=== PATIENT | male | born 1950 | race Caucasian/White ===

== ENCOUNTER 2021-08-15 13:11 | Outpatient (CLI) | payer OTHER, SELFPAY ==
[2021-08-15 14:10] LABS: Basophils Absolute Auto 0.1 K/mm3 (0.0-0.1); Basophils Percent Auto 0.6 % (0.2-1.2); Eosinophils Absolute Auto 0.2 K/mm3 (0-0.3); Eosinophils Percent Auto 1.8 % (0-4.4); Hematocrit 44.6 % (42.0-52.0); Immature Granulocyte Absolute 0.03 K/mm3 (0.00-0.031); Immature Granulocyte Percent A 0.3 % (0-0.5); Lymphocytes Percent Auto 26.3 % (18.3-44.2); Mean Corpuscular HGB Conc 33.6 g/dl (32-36); Mean Corpuscular Hemoglobin 30.6 pg (26-34); Mean Platelet Volume 9.4 fl (7.4-10.4); Monocytes Absolute Auto 0.8 K/mm3 (0.1-0.6); Monocytes Percent Auto 8.8 % (2.6-8.5); Neutrophils Absolute Auto 5.4 K/mm3 (1.3-6.7); Neutrophils Percent Auto 62.2 % (45.5-73.1); Platelet Count Result 223 k/mm3 (150-375); White Blood Count 8.7 K/mm3 (4.5-10.0)
[2021-08-15 14:20] LABS: Alanine Aminotransferase 56 U/L (4-50); Alkaline Phosphatase 124 U/L (38-126); Anion Gap 5 mmol/L (8-16); Aspartate Amino Transferase 59 U/L (17-59); Bilirubin,Total 0.7 mg/dL (0.2-1.3); Blood Urea Nitrogen 15 mg/dL (9-20); Calcium 9.2 mg/dL (8.4-10.2); Carbon Dioxide 30 mmol/L (22-30); Chloride 103 mmol/L (98-107); Cholesterol 183 mg/dL (0-200); Estimated Glomerular Filt Rate > 60; Glucose 100 mg/dL (65-110); HDL Direct 31 mg/dL; Potassium 4.3 mmol/L (3.4-5.0); Sodium 138 mmol/L (137-145); Triglycerides 150 mg/dL (<150)
[2021-08-15 14:29] LABS: Add Urine Microscopic? YES; Appearance Urine Clear (Clear); Bilirubin Urine Negative (Negative); Blood Urine Negative (Negative); Color Urine Yellow (Yellow); Glucose Urine UA Negative (Negative); Ketones Urine Negative (Negative); Leukocyte Esterase Ur Trace LEU/UL (NEGATIVE); Mucus Urine Rare /lpf; Nitrate Urine Negative (Negative); Protein Urine Negative (Negative); Specific Grav Ur 1.024 (1.001-1.035); Urobilinogen Urine Negative mg/dL (<2.0); WBC Urine 0-3 /hpf (0-3)
[2021-08-15 14:31] LABS: LDL Cholesterol Direct 107 mg/dL
[2021-08-15 14:50] LABS: Prostate Specific Antigen 3.5 ng/mL (< OR = 4.0)
== END 2021-08-15 13:12 | disposition home or self-care (01) ==
PROVIDERS: PCP Family Medicine; Visit Provider Physician Assistant
DX: R35.0 Frequency of micturition (principal); Z12.5 Encounter for screening for malignant neoplasm of prostate; Z76.89 Persons encountering health services in other specified circumstances; I70.0 Atherosclerosis of aorta
CPT/HCPCS: 36415; 80053; 80061; 81001; 84153; 85025; G0103

== ENCOUNTER 2022-03-24 10:58 | Outpatient (CLI) | payer OTHER, SELFPAY ==
--- NOTE | ~2022-03-24 | CT_ITS ---
EXAMINATION: CT lung screening DATE: 03/24/2022 11:20 INDICATION: Personal history nicotine dependence, prior smoker with 50 pack year history TECHNIQUE: Computed tomography (CT) of the chest was performed without intravenous contrast. The dose -length product (DLP) was 248.20 mGy-cm. Automated exposure control and iterative reconstruction tech Schvey were employed. COMPARISON: None FINDINGS: There is moderate emphysema. There is a 6.9 x 5.3 cm left upper lobe mass which invades the anterior mediastinum and insinuates itself anterior to the aortic arch. An enlarged right paratrache al lymph node measures 11 mm in short axis. There is elevation of the left hemidiaphragm. There is a 6 mm nodule of the right lower lobe abutting the major fissure on image 69. The heart size is normal. No pleural effusion or pneumothorax. There is severe thoracic spondylosis. There are areas of hypoat tenuation in multiple vertebral bodies abutting the disc space, likely degenerative. A 1.3 cm soft ti ssue density mass of the left upper quadrant on image 101 may reflect a splenule. IMPRESSION: 1. Lung-RADS category 4X: Very suspicious. Findings for which additional diagnostic testing and/or ti ssue sampling is recommended. Reviewed, dictated and finalized at location A. IMPRESSION: 1. Lung-RADS category 4X: Very suspicious. Findings for which additional diagno stic testing and/or tissue sampling is recommended.
[2022-03-24 11:55] LABS: Alanine Aminotransferase 69 U/L (6-50); Albumin Level 4.3 g/dL (3.5-5.1); Alkaline Phosphatase 173 U/L (38-126); Anion Gap 6 mmol/L (8-16); Aspartate Amino Transferase 62 U/L (17-59); Bilirubin,Total 0.6 mg/dL (0.2-1.3); Blood Urea Nitrogen 14 mg/dL (9-20); Calcium 9.7 mg/dL (8.4-10.2); Carbon Dioxide 29 mmol/L (22-30); Chloride 103 mmol/L (98-107); Estimated Glomerular Filt Rate > 60; Glucose 107 mg/dL (65-110); Potassium 4.1 mmol/L (3.4-5.0); Sodium 138 mmol/L (137-145)
[2022-03-24 12:25] LABS: Prostate Specific Antigen 5.1 ng/mL (< OR = 4.0)
== END 2022-03-24 10:59 | disposition home or self-care (01) ==
PROVIDERS: PCP Family Medicine; Visit Provider Family Medicine
DX: Z12.2 Encounter for screening for malignant neoplasm of respiratory organs (principal); Z87.891 Personal history of nicotine dependence; Z13.228 Encounter for screening for other metabolic disorders; Z13.220 Encounter for screening for lipoid disorders; N40.0 Benign prostatic hyperplasia without lower urinary tract symptoms; Z12.5 Encounter for screening for malignant neoplasm of prostate
CPT/HCPCS: 36415; 71271; 80053; 80061; 84153; G0103

== ENCOUNTER 2022-06-05 15:24 | Outpatient (CLI) | payer OTHER, SELFPAY ==
[2022-06-05 15:41] LABS: Basophils Absolute Auto 0.1 K/mm3 (0.0-0.1); Basophils Percent Auto 0.5 % (0.2-1.2); Eosinophils Absolute Auto 0.2 K/mm3 (0-0.3); Eosinophils Percent Auto 2.5 % (0-4.4); Hematocrit 44.5 % (42.0-52.0); Hemoglobin 14.9 g/dL (14.0-18.0); Immature Granulocyte Absolute 0.02 K/mm3 (0.00-0.031); Immature Granulocyte Percent A 0.2 % (0-0.5); Lymphocytes Absolute Auto 2.11 K/mm3 (0.9-3.2); Lymphocytes Percent Auto 22.1 % (18.3-44.2); Mean Corpuscular HGB Conc 33.5 g/dl (32-36); Mean Corpuscular Hemoglobin 29.3 pg (26-34); Mean Corpuscular Volume 87.4 fl (80-100); Mean Platelet Volume 9.3 fl (7.4-10.4); Monocytes Absolute Auto 0.9 K/mm3 (0.1-0.6); Monocytes Percent Auto 9.5 % (2.6-8.5); Neutrophils Absolute Auto 6.2 K/mm3 (1.3-6.7); Neutrophils Percent Auto 65.2 % (45.5-73.1); Platelet Count Result 238 k/mm3 (150-375); Red Blood Count 5.09 M/mm3 (4.6-6.20); Red Cell Distribution Width 13.8 % (11.5-14.5); White Blood Count 9.5 K/mm3 (4.5-10.0)
[2022-06-05 16:05] LABS: Alanine Aminotransferase 65 U/L (6-50); Albumin Level 4.1 g/dL (3.5-5.1); Alkaline Phosphatase 224 U/L (38-126); Anion Gap 5 mmol/L (8-16); Aspartate Amino Transferase 70 U/L (17-59); Bilirubin,Total 0.5 mg/dL (0.2-1.3); Blood Urea Nitrogen 17 mg/dL (9-20); Calcium 10.2 mg/dL (8.4-10.2); Carbon Dioxide 27 mmol/L (22-30); Chloride 104 mmol/L (98-107); Estimated Glomerular Filt Rate > 60; Glucose 99 mg/dL (65-110); Potassium 3.9 mmol/L (3.4-5.0); Sodium 136 mmol/L (137-145)
== END 2022-06-05 15:25 | disposition home or self-care (01) ==
LOC: ANHLAB 15:26
PROVIDERS: Internal Medicine Hematology & Oncology; PCP Family Medicine; Visit Provider Internal Medicine Hematology & Oncology
DX: C34.90 Malignant neoplasm of unspecified part of unspecified bronchus or lung (principal)
CPT/HCPCS: 36415; 80053; 85025

== ENCOUNTER 2022-07-21 01:07 | Day surgery (SDC) | payer MEDICARE, MEDICAID, SELFPAY ==
--- NOTE | 2022-07-16 08:55 | PC.NURSE ---
Report to the Outpatient Waiting Room, entrance under the green pavilion located off [facility], at time ___1130____ on date __07/21/22 . Planned Procedure Time: __1330 . Time changes happen often and if your time is changed the preop area will call you the afternoon before. - You and your visitor will be asked to self-screen and do not enter if you have any COVID symptoms. - Only one visitor is requested with a max of two and NO children visitors are allowed at this time. - The patient visitor may be requested to leave or wait in car when not with patient due to distancing restrictions. - A mask is optional within the hospital at this time. Patients may have clear liquids (water, carbonated beverages, clear teas, apple juice) until 3 hours prior to surgery with a maximum of 20 ounces. - No food from midnight until time of surgery - Infants may have breast milk until 4 hours before surgery, formula 6 hours prior to surgery. - Children will be allowed to drink immediately following surgery. If applicable, please bring a bottle or sippy cup to assist with drinking. Juice, water, soda, and popsicles are readily available. For infants on formula, please bring formula the day of surgery. Pacifiers are allowed. Take the following medications with a SIP of water the morning of surgery: ___INHALER, AND SERTRALINE DO NOT STOP ANY OF YOUR OTHER PRESCRIPTION MEDICATIONS PRIOR TO SURGERY ?EXCEPT THE FOLLOWING Medications to discontinue per physician ___ALL VITAMINS AND SUPPLEMENTS 3 DAYS PRE OP .LAST DOSE07/17/22 Please no make-up, nail croatian, hairspray, perfume, deodorant, or body powder the day of surgery. No jewelry (including any body piercings) or valuables the day of surgery, leave them at home. Please take a shower or bath the night before, or the morning of, surgery with an antibacterial soap. Wear comfortable, loose fitting clothing. Children are encouraged to wear pajamas. - Jewelry must be removed prior to entering the operating room. Rings and piercings that are not removed may be cut off. - The hospital will not accept responsibility for valuables. - Please leave all valuables, including medications, at home the day of surgery. If you are going home after surgery, a licensed cart driver must drive you home. - NO public transportation without another adult if you receive anesthesia. - We recommend that an adult stay with you for 24 hours following discharge. - We also recommend that you do not drive, make important decision, drink alcoholic beverages, or take any drugs that were not prescribed by your health care provider for at least 24 hours after your discharge time. Follow any additional instructions given to you from your surgeon. If you or anyone in your household have experienced Covid symptoms in the past week, please notify your surgeon or the nurse liaison at the phone number below for possible testing. Telephone instructions given to _ PER PATIENT REQUEST GIVE INSTRUCTIONS TO FRIEND SEAN LUONG - GIVEN and asked if any additional questions and then verbalized understanding. Patient advised to call surgeon office or pre surgery nurse liaison [phone] if any additional questions.
[2022-07-16 09:05] VITALS: BMI 29.3
--- NOTE | ~2022-07-21 | XR_ITS ---
EXAMINATION: XR fl guide central line place DATE: 07/21/2022 14:55 INDICATION: Port placement. TECHNIQUE: A single intraoperative fluoroscopic view of the chest was obtained. I was not present. Fl uoroscopy exposure time was 27 seconds. COMPARISON: Chest CT 03/24/22 FINDINGS: There is a right subclavian port with tip not included. There is displacement of the cathet er between the clavicle and first rib. IMPRESSION: 1. Port placement. Displacement of the catheter between the clavicle and first rib. Reviewed, dictated and finalized at location A. ESSORI TODDLER TEACHER
--- NOTE | ~2022-07-21 | XR_ITS ---
EXAMINATION: XR chest port-a-cath/central DATE: 07/21/2022 14:37 INDICATION: Port placement. TECHNIQUE: A single frontal view of the chest was obtained. COMPARISON: Chest CT 03/24/2022 FINDINGS: There is a mass in anterior segment left upper lobe. There is elevation of left hemidiaphra gm. There are airspace opacities at left lung base, likely atelectasis. No pleural effusion or pneumo thorax. The heart size is normal. There is a right subclavian port with tip in proximal right atrium. There is displacement and indentation of the catheter between the clavicle and first rib. IMPRESSION: 1. Port tip in proximal right atrium. Displacement and indentation of the catheter between the clavic le and first rib, which increases the risk of catheter fracture. 2. Mass in anterior segment left upper lobe, consistent with primary bronchogenic carcinoma. 3. Elevation of left hemidiaphragm with airspace opacities at left lung base, likely atelectasis. Reviewed, dictated and finalized at location A. ENT DEVELOPMENT SPECIALIST IMPRESSION: 1. Port tip in proximal right atrium. Displacement and indentation of the steve ter between the clavicle and first rib, which increases the risk of catheter fr acture. 2. Mass in anterior segment left upper lobe, consistent with primary bronchogen ic carcinoma. 3. Elevation of left hemidiaphragm with airspace opacities at left lung base, l ikely atelectasis.
[2022-07-21 11:29] VITALS: BP 107/79; PULSE 76; RESP 20; TEMP 36.2; O2SAT 98
[2022-07-21] MEDS: LACTATED RINGERS 1,000 ML 30 ML IV CONT (11:52)
[2022-07-21] MEDS: KETOROLAC 15 MG/ML VIAL (*BKC) IV PUSH (12:08)
--- NOTE | 2022-07-21 12:19 | WPDANESEPPF ---
Anes - Initial Pre Proc Eval Procedure: Operation Date: 07/21/22 13:30 Proposed Procedures p Insertion Greg Cath - Mona Pickett MD Date/Time: 07/21/22 12:19 Surgeon: Mona Pickett MD Pre Op Diagnosis: malig neoplasm of lung Patient Data Age: 71 Gender: M Height: 1.73 m Weight: 86.5 kg Last Vital Signs Temp 36.2 C L 07/21/22 11:29 Pulse 76 07/21/22 11:29 Resp 20 07/21/22 11:29 BP 107/79 07/21/22 11:29 Pulse Ox 98 07/21/22 11:29 O2 Del Method Room Air 07/21/22 11:29 Allergies Allergy/AdvReac Type Severity Reaction Status Date / Time No Known Allergies Allergy Verified 07/21/22 12:02 Home Medications Medication Instructions Recorded Confirmed Type sertraline 50 mg tablet 50 mg PO DAILY #90 tabs 03/17/22 07/21/22 Rx umeclidinium 62.5 mcg-vilanterol 1 inh inhalation DAILY #60 ea 05/09/22 07/21/22 Rx 25 mcg/actuation powdr for inhalation (Anoro Ellipta) ascorbic acid (vitamin C) 1,000 mg 1 g PO DAILY 06/19/22 07/21/22 History capsule mirabegron 50 mg tablet,extended 50 mg PO DAILY #30 tabs 06/19/22 07/21/22 Rx release 24 hr (Myrbetriq) albuterol sulfate 90 mcg/actuation 2 puff inhalation PRN PRN 07/16/22 07/21/22 History aerosol inhaler Shortness Of Breath elderberry fruit 200 mg capsule 200 mg PO DAILY 07/16/22 07/21/22 History ginkgo biloba 40 mg tablet 40 mg PO DAILY 07/16/22 07/21/22 History pantoprazole 40 mg tablet,delayed 40 mg PO DAILY 07/16/22 07/21/22 History release Laboratory Tests 07/21/22 11:46 PT 13.0 Seconds Seconds (11.1-14.7) INR 1.0 APTT 28.0 SECONDS SECONDS (22.3-36.8) Patient hx anesthesia problems: none Family hx anesthesia problems: none Results Review: All pre-operative results and documents have been reviewed as part of the pre-operative evaluation. PMFSH Surgical History Surgical History History of lung biopsy (~05/2022) Social History Social History Smoking packs per day: 1 Smoking cigarettes per day: 20.0 Years smoked: 50 Smoking pack-years: 50.00 Smoking status: Former smoker Tobacco type: cigarettes Smoking end date: 06/08/19 Alcohol intake: former Substance use: current Substance use type: marijuana Last use: 07/16/22 Lack of Transportation: No Lack of Food: Sometimes True Current Housing: I Have Housing Concerned About Future Housing: No Difficulty Paying Gas/Electric Bills: No Difficulty Paying for Meds: No Currently Unemployed: No Education: Grade School Difficulty w/ Childcare or Family Care: No Living arrangements: alone Occupation/Education: retired Gender identity (if verbalized by the patient): Male Spiritual care concerns: No Anes - Eval Final PreProcedure Day of Procedure 07/21/22 12:19 Patient weight: overweight Heart: regular rate and rhythm Lungs: decreased breath sounds Airway: Mallampati scale class II and special considerations poor dentition Neurological: alert and oriented Last oral intake: >/= 8 hours ASA classification: III Emergent: no Anesthetic plan: proceed Anesthesia type and monitoring: general GIVS and standard monitoring Results Review: All pre-operative results and documents have been reviewed as part of the pre-operative evaluation. Informed Consent: The patient's anesthetic plan and its attendant risks and benefits were discussed with the patient/family/POA. Questions were solicited and answers provided to the satisfaction of the patient/family/POA.
--- NOTE | 2022-07-21 12:39 | PM.IMHP ---
H&P: HPI History of Present Illness Date/Time: 07/21/22 12:39 Chief Complaint: lung cancer Narrative: Pt is a 71 y/o M presenting for placement of venous access device. Pt c recently dx'd PEDRO lung cancer and is going to undergo chemotherapy. Pt denies previous central venous catheterization. Review of Systems Review of Systems: All systems reviewed & are unremarkable except as noted in HPI and below PMFSH Surgical History Surgical History History of lung biopsy (~05/2022) Social History Social History Smoking packs per day: 1 Smoking cigarettes per day: 20.0 Years smoked: 50 Smoking pack-years: 50.00 Smoking status: Former smoker Tobacco type: cigarettes Smoking end date: 06/08/19 Alcohol intake: former Substance use: current Substance use type: marijuana Last use: 07/16/22 Lack of Transportation: No Lack of Food: Sometimes True Current Housing: I Have Housing Concerned About Future Housing: No Difficulty Paying Gas/Electric Bills: No Difficulty Paying for Meds: No Currently Unemployed: No Education: Grade School Difficulty w/ Childcare or Family Care: No Living arrangements: alone Occupation/Education: retired Gender identity (if verbalized by the patient): Male Spiritual care concerns: No Meds Home Medications and Allergies Home Medications Medication Instructions Recorded Confirmed Type sertraline 50 mg tablet 50 mg PO DAILY #90 tabs 03/17/22 07/21/22 Rx umeclidinium 62.5 mcg-vilanterol 1 inh inhalation DAILY #60 ea 05/09/22 07/21/22 Rx 25 mcg/actuation powdr for inhalation (Anoro Ellipta) ascorbic acid (vitamin C) 1,000 mg 1 g PO DAILY 06/19/22 07/21/22 History capsule mirabegron 50 mg tablet,extended 50 mg PO DAILY #30 tabs 06/19/22 07/21/22 Rx release 24 hr (Myrbetriq) albuterol sulfate 90 mcg/actuation 2 puff inhalation PRN PRN 07/16/22 07/21/22 History aerosol inhaler Shortness Of Breath elderberry fruit 200 mg capsule 200 mg PO DAILY 07/16/22 07/21/22 History ginkgo biloba 40 mg tablet 40 mg PO DAILY 07/16/22 07/21/22 History pantoprazole 40 mg tablet,delayed 40 mg PO DAILY 07/16/22 07/21/22 History release Allergies Allergy/AdvReac Type Severity Reaction Status Date / Time No Known Allergies Allergy Verified 07/21/22 12:02 Vital Signs Vital Signs - 24 hr 07/21/22 11:29 Temperature 36.2 C L Pulse Rate 76 Respiratory Rate 20 Blood Pressure 107/79 Pulse Oximetry 98 Oxygen Delivery Room Air Exam Const: General: cooperative, comfortable, no acute distress, ill appearing and average body habitus Resp: Auscultation: diminished lung sounds Cardio: Rate: regular rate Rhythm: regular rhythm GI: Inspection: normal to inspection Assessment and Plan Assessment and plan (1) Lung cancer: Qualifiers: Laterality: left Lung location: upper lobe of lung Qualified Code(s): C34.12 - Malignant neoplasm of upper lobe, left bronchus or lung Code(s): C34.90 - Malignant neoplasm of unspecified part of unspecified bronchus or lung Status: Acute Assessment and Plan: will setup for R sided VAD placement
--- NOTE | 2022-07-21 12:41 | WPDHPUPDATE1 ---
History and Physical Update Update Date/Time: 07/21/22 12:41 History and Physical has been reviewed, including an updated exam of the patient. There are NO changes in the patient's condition. Risks, benefits, and alternatives have been discussed and questions answered. Patient agrees to proceed with procedure.
[2022-07-21] MEDS: ceFAZolin 2 GM/D5W 50 ML 2 GM/50 ML BAG IVPB (13:36)
--- NOTE | 2022-07-21 14:13 | SUR.OPER ---
Chilo Port exp 20[birth year], lot [id number] right chest placement with fluro
[2022-07-21] MEDS: BUPIVACAINE/EPINEPHRINE 0.5% 10 ML VIAL 30 ML INFILTRATE (14:14)
[2022-07-21 14:26] VITALS: BP 100/63; PULSE 81; RESP 16; O2SAT 92
--- NOTE | 2022-07-21 14:30 | W.PM.PROC2 ---
Procedure Note - Detailed Date of Procedure 07/21/22 Pre-op Diagnosis malig neoplasm of lung Post-op Diagnosis Same Procedure Performed placement right subclavian venous access device under fluroscopic guidance Surgeon Mona Pickett MD Anesthesia MAC and Local Indications 71 y/o M c PEDRO lung cancer requiring access for chemotherapy Findings 1st stick R SCV Description of Procedure Patient was brought into the operating room and placed in the supine position. After adequate induction of mac anesthesia, the patient was prepped and draped in normal sterile fashion. Time-out was then done to verify the patient's identity, as well as the procedure being performed. I began by making a small incision in the right chest, I then gained access into the right subclavian vein with an 18 gauge needle. I then placed the guidewire into the vein and confirmed placement via fluoroscopic guidance. I then locally anesthetized the area in the right chest. I then enlarged the incision around the guidewire including making a subcutaneous pocket inferiorly to allow placement of the port itself. I then placed a dilating sheath over the guidewire into the right subclavian vein via sterile Seldinger technique. This was once again done and confirmed via fluoroscopic guidance. I then removed the dilator and the guidewire, now just leaving the sheath in the vein. I then fed the previously flushed catheter into the right subclavian vein under fluoroscopic guidance. At approximately 20 cm, the catheter was noted to be near the atrial caval junction. I then peeled away the sheath, now just leaving the catheter in the vein. I then was able to easily draw and flush from the catheter. The catheter was cut to fit and attached to the port itself. The port was placed into the previously made subcutaneous pocket and sutured in with 0 Ethibond suture. Final fluoroscopic view showed the termination of the catheter at the atrial caval junction with a nice smooth curvature back to the port itself. I was able to gain access to the port with a Barrios needle and was able to easily draw and flush from the port. I then flushed 4 cc of a final heparin flush into the port. The incision was closed with 3 0 Vicryl suture in the subcutaneous tissue and the skin was closed with 4 O Monocryl subcuticular suture. Dermabond was then placed on wound. The patient tolerated the procedure well and will be sent to the recovery room in stable condition. Implants R SCV VAD Estimated Blood Loss 5 Drains No Packing No Pathology None sent Complications No immediate complications Condition Stable Disposition PACU [facility] Billing Surgery - Charge Forward: Surgery Billing
[2022-07-21 14:56] VITALS: BP 118/76; PULSE 69; RESP 14
--- NOTE | 2022-07-21 15:06 | SUR.PHASEII ---
1505: Dr. Pickett notified of patient CXR results. No new orders.
[2022-07-21 15:26] VITALS: BP 117/75; PULSE 69; RESP 14
[2022-07-21 15:35] VITALS: BP 123/82; PULSE 68; RESP 15
== END 2022-07-21 15:40 | disposition home or self-care (01) ==
PROVIDERS: PCP Family Medicine; Visit Provider Surgery
PROC: (CPT 36561; principal; 2022-07-21 13:30)
DX: C34.12 Malignant neoplasm of upper lobe, left bronchus or lung (principal); Z87.891 Personal history of nicotine dependence; F12.90 Cannabis use, unspecified, uncomplicated; Z79.51 Long term (current) use of inhaled steroids
CPT/HCPCS: 36561; 36415; 77001; 85610; 85730; C1788; J0690; J1644; J1885; J2250; J2704; J3010; J7030; J7120

== ENCOUNTER 2022-09-10 01:09 | Day surgery (SDC) | payer MEDICARE, MEDICAID, SELFPAY ==
--- NOTE | 2022-09-01 15:25 | PC.NURSE ---
Report to the Outpatient Waiting Room, entrance under the green pavilion located off [facility], at [id number] on date __09/10/22 . Planned Procedure Time: ___1200 . Time changes happen often and if your time is changed the preop area will call you the afternoon before. - You and your visitor will be asked to self-screen and do not enter if you have any COVID symptoms. - Only one visitor is requested with a max of two and NO children visitors are allowed at this time. - The patient visitor may be requested to leave or wait in car when not with patient due to distancing restrictions. - A mask is optional within the hospital at this time. Patients may have clear liquids (water, carbonated beverages, clear teas, apple juice) until 3 hours prior to surgery with a maximum of 20 ounces. - No food from midnight until time of surgery - Infants may have breast milk until 4 hours before surgery, formula 6 hours prior to surgery. - Children will be allowed to drink immediately following surgery. If applicable, please bring a bottle or sippy cup to assist with drinking. Juice, water, soda, and popsicles are readily available. For infants on formula, please bring formula the day of surgery. Pacifiers are allowed. Take the following medications with a SIP of water the morning of surgery: ___INHALER, SERTRALINE DO NOT STOP ANY OF YOUR OTHER PRESCRIPTION MEDICATIONS PRIOR TO SURGERY ?EXCEPT THE FOLLOWING Medications to discontinue per physician ALL VITAMINS AND SUPPLEMENTS 3 DAYS PRE OP. LAST DOSE 09/06/22 Please no make-up, nail romanian, hairspray, perfume, deodorant, or body powder the day of surgery. No jewelry (including any body piercings) or valuables the day of surgery, leave them at home. Please take a shower or bath the night before, or the morning of, surgery with an antibacterial soap. Wear comfortable, loose fitting clothing. Children are encouraged to wear pajamas. - Jewelry must be removed prior to entering the operating room. Rings and piercings that are not removed may be cut off. - The hospital will not accept responsibility for valuables. - Please leave all valuables, including medications, at home the day of surgery. If you are going home after surgery, a licensed commercial collections driver must drive you home. - NO public transportation without another adult if you receive anesthesia. - We recommend that an adult stay with you for 24 hours following discharge. - We also recommend that you do not drive, make important decision, drink alcoholic beverages, or take any drugs that were not prescribed by your health care provider for at least 24 hours after your discharge time. For Pediatric surgeries, we recommend two adults accompany the child home. Follow any additional instructions given to you from your surgeon. If you or anyone in your household have experienced Covid symptoms in the past week, please notify your surgeon or the nurse liaison at the phone number below for possible testing. Telephone instructions given to ____PATIENT and asked if any additional questions and then verbalized understanding. Patient advised to call surgeon office or pre surgery nurse liaison [phone] if any additional questions.
--- NOTE | 2022-09-01 15:26 | PC.NURSE ---
PT STATES NO CHANGE IN HEALTH HX SINCE LAST INTERVIEW IN JUL 2022
--- NOTE | ~2022-09-10 | XR_ITS ---
EXAMINATION: XR chest port-a-cath/central INDICATION: Port-A-Cath exchange TECHNIQUE: Portable AP chest at 1319 hours COMPARISON: 07/21/2022 FINDINGS: The right subclavian Port-A-Cath has been removed. There is now a right internal jugular Po rt-A-Cath which ends with this tip at the superior cavoatrial junction. There is mild atelectasis of the right lung base. There is elevation of the left hemidiaphragm. There is a left perihilar and uppe r lobe mass. No pleural effusion or pneumothorax. The heart size is stable. IMPRESSION: 1. Right subclavian Port-A-Cath removal and insertion of a right internal jugular Port-A-Cath. 2. Left perihilar and upper lobe mass, consistent with primary bronchogenic carcinoma. Reviewed, dictated and finalized at location B. IMPRESSION: 1. Right subclavian Port-A-Cath removal and insertion of a right internal jugul ar Port-A-Cath. 2. Left perihilar and upper lobe mass, consistent with primary bronchogenic car cinoma.
--- NOTE | ~2022-09-10 | XR_ITS ---
EXAMINATION: XR fl guide central line place DATE: 09/10/2022 13:13 INDICATION: Port placement. TECHNIQUE: An intraoperative fluoroscopic view of the chest was obtained. I was not present. Fluorosc opy exposure time was 28 seconds. COMPARISON: Chest single view 07/21/2022 FINDINGS: There is a right internal jugular port with tip in superior vena cava. IMPRESSION: 1. Port tip in superior vena cava. Reviewed, dictated and finalized at location A.
[2022-09-10 10:15] VITALS: BP 114/77; PULSE 78; RESP 18; TEMP 36.8; O2SAT 99
[2022-09-10] MEDS: KETOROLAC 15 MG/ML VIAL (*BKC) IV PUSH (10:15)
[2022-09-10] MEDS: LACTATED RINGERS 1,000 ML 30 ML IV CONT (10:15)
--- NOTE | 2022-09-10 11:03 | WPDANESEPPF ---
Anes - Initial Pre Proc Eval Procedure: Operation Date: 09/10/22 12:00 Proposed Procedures p Removal Greg Cath, - Mona Pickett MD s Insertion Greg Cath - Mona Pickett MD Date/Time: 09/10/22 11:03 Surgeon: Mona Pickett MD Pre Op Diagnosis: Port Dysfunc Patient Data Age: 71 Gender: M Height: Weight: 81.8 kg Last Vital Signs Temp 98.3 F 09/10/22 10:15 Pulse 78 09/10/22 10:15 Resp 18 09/10/22 10:15 BP 114/77 09/10/22 10:15 Pulse Ox 99 09/10/22 10:15 O2 Del Method Room Air 09/10/22 10:15 Allergies Allergy/AdvReac Type Severity Reaction Status Date / Time No Known Allergies Allergy Verified 09/10/22 10:41 Home Medications Medication Instructions Recorded Confirmed Type ascorbic acid (vitamin C) 1,000 mg 1 g PO DAILY 06/19/22 09/01/22 History capsule albuterol sulfate 90 mcg/actuation 2 puff inhalation PRN PRN 07/16/22 09/01/22 History aerosol inhaler Shortness Of Breath elderberry fruit 200 mg capsule 200 mg PO DAILY 07/16/22 09/01/22 History ginkgo biloba 40 mg tablet 40 mg PO DAILY 07/16/22 09/01/22 History pantoprazole 40 mg tablet,delayed 40 mg PO DAILY 07/16/22 09/01/22 History release mirabegron 50 mg tablet,extended 50 mg PO DAILY #90 tabs 07/31/22 09/01/22 Rx release 24 hr (Myrbetriq) umeclidinium 62.5 mcg-vilanterol 1 inh inhalation DAILY #60 ea 08/20/22 09/01/22 Rx 25 mcg/actuation powdr for inhalation (Anoro Ellipta) sertraline 50 mg tablet 50 mg PO DAILY #90 tabs 09/10/22 Rx Patient hx anesthesia problems: none Family hx anesthesia problems: none Results Review: All pre-operative results and documents have been reviewed as part of the pre-operative evaluation. [facility] Past Medical History Medical History (Updated 08/11/22 @ 09:38 by Colin Galan MD) Port-A-Cath in place 07/21/22 Surgical History Surgical History History of lung biopsy (~05/2022) Social History Social History Smoking packs per day: 1 Smoking cigarettes per day: 20.0 Years smoked: 50 Smoking pack-years: 50.00 Smoking status: Former smoker Tobacco type: cigarettes Smoking end date: 06/08/19 Alcohol intake: former Substance use: current Substance use type: marijuana Last use: 07/16/22 Lack of Transportation: No Lack of Food: Sometimes True Current Housing: I Have Housing Concerned About Future Housing: No Difficulty Paying Gas/Electric Bills: No Difficulty Paying for Meds: No Currently Unemployed: No Education: Grade School Difficulty w/ Childcare or Family Care: No Living arrangements: alone Occupation/Education: retired Gender identity (if verbalized by the patient): Male Spiritual care concerns: No Anes - Eval Final PreProcedure Day of Procedure 09/10/22 11:03 Patient weight: normal Heart: regular rate and rhythm Lungs: clear to auscultation Airway: Mallampati scale class II Neurological: alert and oriented Last oral intake: >/= 8 hours ASA classification: III Emergent: no Anesthetic plan: proceed Anesthesia type and monitoring: general GIVS (mayuse LMA) and standard monitoring Results Review: All pre-operative results and documents have been reviewed as part of the pre-operative evaluation. Informed Consent: The patient's anesthetic plan and its attendant risks and benefits were discussed with the patient/family/POA. Questions were solicited and answers provided to the satisfaction of the patient/family/POA.
--- NOTE | 2022-09-10 11:16 | PM.IMHP ---
H&P: HPI History of Present Illness Date/Time: 09/10/22 11:16 Chief Complaint: port dysfunction Narrative: Truong returns to the office accompanied by his caregiver following placement right subclavian venous access device under fluoroscopic guidance on 07/21/22. Patient states he is feeling okay. He denies any pain. He states his oncology and home health nurses are having difficulty accessing the device. XR fl port a cath w contrast was done on 08/01/22 FINDINGS: Contrast material flows through the catheter and into the right atrium with the patient recumbent on the fluoroscopy table. Upon standing the patient, nurse was unable to get any blood return and was unable to inject contrast material through the Port-A-Cath; there was no contrast opacification of the Port-A-Cath catheter or contrast material through the catheter into the right atrium with the patient upright.?IMPRESSION: Position dependent right Port-A-Cath. Patient would like to schedule port removal and replacement.? Review of Systems Review of Systems: All systems reviewed & are unremarkable except as noted in HPI and below PMFSH Past Medical History Medical History Port-A-Cath in place 07/21/22 Surgical History Surgical History History of lung biopsy (~05/2022) Social History Social History Smoking packs per day: 1 Smoking cigarettes per day: 20.0 Years smoked: 50 Smoking pack-years: 50.00 Smoking status: Former smoker Tobacco type: cigarettes Smoking end date: 06/08/19 Alcohol intake: former Substance use: current Substance use type: marijuana Last use: 07/16/22 Lack of Transportation: No Lack of Food: Sometimes True Current Housing: I Have Housing Concerned About Future Housing: No Difficulty Paying Gas/Electric Bills: No Difficulty Paying for Meds: No Currently Unemployed: No Education: Grade School Difficulty w/ Childcare or Family Care: No Living arrangements: alone Occupation/Education: retired Gender identity (if verbalized by the patient): Male Spiritual care concerns: No Meds Home Medications and Allergies Home Medications Medication Instructions Recorded Confirmed Type ascorbic acid (vitamin C) 1,000 mg 1 g PO DAILY 06/19/22 09/01/22 History capsule albuterol sulfate 90 mcg/actuation 2 puff inhalation PRN PRN 07/16/22 09/01/22 History aerosol inhaler Shortness Of Breath elderberry fruit 200 mg capsule 200 mg PO DAILY 07/16/22 09/01/22 History ginkgo biloba 40 mg tablet 40 mg PO DAILY 07/16/22 09/01/22 History pantoprazole 40 mg tablet,delayed 40 mg PO DAILY 07/16/22 09/01/22 History release mirabegron 50 mg tablet,extended 50 mg PO DAILY #90 tabs 07/31/22 09/01/22 Rx release 24 hr (Myrbetriq) umeclidinium 62.5 mcg-vilanterol 1 inh inhalation DAILY #60 ea 08/20/22 09/01/22 Rx 25 mcg/actuation powdr for inhalation (Anoro Ellipta) sertraline 50 mg tablet 50 mg PO DAILY #90 tabs 09/10/22 Rx Allergies Allergy/AdvReac Type Severity Reaction Status Date / Time No Known Allergies Allergy Verified 09/10/22 10:41 Vital Signs Vital Signs - 24 hr 09/10/22 10:15 Temperature 36.8 C Pulse Rate 78 Respiratory Rate 18 Blood Pressure 114/77 Pulse Oximetry 99 Oxygen Delivery Room Air Exam Const: General: cooperative, comfortable and no acute distress Chest: Other: R VAD - C/D/I Resp: Auscultation: diminished lung sounds GI: Inspection: normal to inspection Assessment and Plan Assessment and plan (1) Port-A-Cath in place: Code(s): Z95.828 - Presence of other vascular implants and grafts Status: Acute Assessment and Plan: very positional in nature, will remove and replace in OR (2) Lung cancer: Qualifiers: Laterality: left Lung location: upper lobe of lung
--- NOTE | 2022-09-10 11:47 | WPDHPUPDATE1 ---
History and Physical Update Update Date/Time: 09/10/22 11:47 History and Physical has been reviewed, including an updated exam of the patient. There are NO changes in the patient's condition. Risks, benefits, and alternatives have been discussed and questions answered. Patient agrees to proceed with procedure.
[2022-09-10] MEDS: ceFAZolin 2 GM/D5W 50 ML 2 GM/50 ML BAG IVPB (12:19)
[2022-09-10] MEDS: BUPIVACAINE/EPINEPHRINE 0.5% 50 ML VIAL 30 ML INFILTRATE (12:19)
[2022-09-10] MEDS: HEPARIN SODIUM, PORCINE 10,000 UNITS/10 ML VIAL 10000 UNITS IRRIGATION (12:19)
[2022-09-10] MEDS: HEPARIN SODIUM 5,000 UNITS/ML VIAL 5000 UNITS IRRIGATION (12:19)
[2022-09-10 13:15] VITALS: BP 88/54; PULSE 80; RESP 16; O2SAT 96
--- NOTE | 2022-09-10 13:29 | P.OP_ITS ---
Procedure Note - Detailed Date of Procedure 09/10/22 Pre-op Diagnosis lung cancer, right subclavian port dysfunction Post-op Diagnosis Same Procedure Performed removal of dysfunctional right subclavian port, placement of right internal ju gular port a cath under both U/S and fluoroscopic guidance Surgeon Mona Pickett MD Anesthesia MAC and Local Indications 71 y/o M c lung cancer necessitating access for chemotherapy. Pt had previously placed R SCV VAD that is dysfunctional. Pt had port study showing that VAD only functioned if pt is laying flat. Given these findings, decision made to remove and replace VAD. Findings 1st stick RIJ under U/S Description of Procedure Patient was brought into the operating room and placed in the supine position. After adequate induction of mac anesthesia, the patient was prepped and draped in normal sterile fashion. Time-out was then done to verify the patient's identity, as well as the procedure being performed. I used the ultrasound to gain access into the right internal jugular vein. Once access was gained, I placed the guidewire in the vein and confirmed proper positioning using fluoroscopy. I then locally anesthetized an area in the right chest. I then made an incision using the old incision to gain access to the previously place port. Once the port reservoir was completely dissected out, I removed the previously placed port in full. Pressure was held at the level of the right subclavian vein for approximately 5 minutes and no subsequent bleeding was noted. I proceeded to tunnel the catheter from the chest to the right neck insertion site. I then placed a dilating sheath over the guidewire into the right internal jugular vein via sterile Seldinger technique. This was once again done and confirmed via fluoroscopic guidance. I then removed the dilator and the guidewire, now just leaving the sheath in the vein. I then fed the previously flushed catheter into the right internal jugular vein under fluoroscopic guidance. At approximately 26 cm, the catheter was noted to be near the atrial caval junction. I then peeled away the sheath, now just leaving the catheter in the vein. I then was able to easily draw and flush from the catheter. The catheter was cut to fit and attached to the port itself. The port was placed into the previously made subcutaneous pocket and sutured in with 0 Ethibond suture. Final fluoroscopic view showed the termination of the catheter at the atrial caval junction with a nice smooth curvature back to the port itself. I was able to gain access to the port with a Barrios needle and was able to easily draw and flush from the port. I then flushed 4 cc of a final heparin flush into the port. The incision was closed with 3 0 Vicryl suture in the subcutaneous tissue and the skin was closed with 4 O Monocryl subcuticular suture. Dermabond was then placed on wound. The patient tolerated the procedure well and will be sent to the recovery room in stable condition. Implants RIJ VAD Estimated Blood Loss 10 Pathology None sent Complications No immediate complications Condition Stable Disposition PACU [facility] Billing Surgery - Charge Forward: Surgery Billing
[2022-09-10 13:45] VITALS: BP 115/69; PULSE 67; RESP 16
== END 2022-09-10 14:15 | disposition home or self-care (01) ==
PROVIDERS: PCP Family Medicine; Visit Provider Surgery
PROC: (CPT 36589; principal; 2022-09-10 12:00)
PROC: (CPT 36582; 2022-09-10 12:00)
DX: T82.594A Other mechanical complication of infusion catheter, initial encounter (principal); Y83.8 Other surgical procedures as the cause of abnormal reaction of the patient, or of later complication, without mention of misadventure at the time of the procedure; C34.12 Malignant neoplasm of upper lobe, left bronchus or lung; Z87.891 Personal history of nicotine dependence; F12.90 Cannabis use, unspecified, uncomplicated; Z79.51 Long term (current) use of inhaled steroids
CPT/HCPCS: 36582; 77001; C1788; J0690; J1644; J1885; J2370; J2704; J7030; J7120

== ENCOUNTER 2022-10-21 07:36 | Outpatient (CLI) | payer MEDICARE, MEDICAID, SELFPAY ==
--- NOTE | ~2022-10-21 | CT_ITS ---
EXAMINATION:CT diagnostic chest w con DATE: 10/21/2022 08:06 INDICATION: Malignant neoplasm of lung. TECHNIQUE: Computed tomography (CT) of the chest was performed with 75 mL Omnipaque 350 intravenous c ontrast. Automated exposure control and iterative reconstruction technique were employed. The dose-le ngth product (DLP) was 390.33 mGy-cm. COMPARISON: Chest CT 03/24/2022 FINDINGS: There is severe emphysema. There is a 5.8 x 5.6 cm mass involving the left upper lobe and a nterior mediastinum that previously measured 6.2 x 6.5 cm. There is marked elevation of left hemidiap hragm. There is mild atelectasis bilaterally. No pleural effusion. There is a 2.1 cm nodule in right thyroid lobe. The heart size is normal. There are coronary artery calcifications. No pericardial effu sherie. There is a right internal jugular port with tip in superior vena cava. There are cysts in the l iver measuring up to 2.1 cm. There is severe cervical and thoracic spondylosis. IMPRESSION: 1. 5.8 x 5.6 cm mass involving the left lung upper lobe and anterior mediastinum that previously jeni ured 6.2 x 6.5 cm, consistent with primary bronchogenic carcinoma. 2. Marked elevation of left hemidiaphragm again seen. 3. Severe emphysema. 4. Right thyroid nodule. Further evaluation with ultrasound may not be needed given the patient's com orbidity. Reviewed, dictated and finalized at location A. IMPRESSION: 1. 5.8 x 5.6 cm mass involving the left lung upper lobe and anterior mediastinu m that previously measured 6.2 x 6.5 cm, consistent with primary bronchogenic c arcinoma. 2. Marked elevation of left hemidiaphragm again seen. 3. Severe emphysema. 4. Right thyroid nodule. Further evaluation with ultrasound may not be needed g iven the patient's comorbidity.
== END 2022-10-21 07:37 | disposition home or self-care (01) ==
PROVIDERS: PCP Family Medicine; Visit Provider Internal Medicine Hematology & Oncology
DX: C34.90 Malignant neoplasm of unspecified part of unspecified bronchus or lung (principal); J43.9 Emphysema, unspecified; E04.1 Nontoxic single thyroid nodule
CPT/HCPCS: 71260; Q9967

== ENCOUNTER 2023-01-12 09:27 | Outpatient (CLI) | payer MEDICARE, MEDICAID, SELFPAY ==
--- NOTE | ~2023-01-12 | CT_ITS ---
Clinical Indication: Lung cancer CT Scan of the Chest with Contrast: Technique: Contiguous sections were acquired throughout the chest after intravenous administration of 75 cc of Omnipaque 350. Dose reduction technique was used on this scan by utilizing automated exposu re control and iterative reconstruction technique. The dose-length product (DLP) was 281.61 mGy-cm. COMPARISON: 10/21/2022 Findings: There is 4.5 x 3.9 cm left upper lobe/anterior mediastinal mass, decreased in size from prior exam. T here is no filling defect in the pulmonary arterial tree to suggest pulmonary embolus. There is no ev idence of aortic dissection or aneurysm. Minimal pericardial fluid present. Small left pleural effusion present. No right pleural effusion. There is mild to moderate emphysema. There is probable atelectatic change or scarring towards the bao gula/inferior left upper lobe there is mild right basilar atelectatic change or scarring.. Images through the upper abdomen reveal cholecystectomy clips and left hepatic lobe cyst. Stable prob able splenule. Impression: Left upper lobe/anterior mediastinal mass is mildly decreased in size from prior exam, compatible wit h bronchogenic carcinoma. Small left pleural effusion, new from prior exam. Minimal pericardial effusion. [id number] emphysema with lingular atelectatic change or scarring. Reviewed, dictated and finalized at location . Impression: Left upper lobe/anterior mediastinal mass is mildly decreased in size from prio r exam, compatible with bronchogenic carcinoma. Small left pleural effusion, new from prior exam. Minimal pericardial effusion. [id number] emphysema with lingular atelectatic change or scarring.
[2023-01-12 09:59] LABS: Estimated Glomerular Filt Rate > 60
== END 2023-01-12 09:28 | disposition home or self-care (01) ==
PROVIDERS: PCP Family Medicine; Visit Provider Internal Medicine Hematology & Oncology
DX: C34.90 Malignant neoplasm of unspecified part of unspecified bronchus or lung (principal); I31.39 Other pericardial effusion (noninflammatory); J90 Pleural effusion, not elsewhere classified; J43.9 Emphysema, unspecified
CPT/HCPCS: 71260; Q9967

== ENCOUNTER 2023-04-07 14:36 | Outpatient (CLI) | payer MEDICARE, MEDICAID, SELFPAY ==
--- NOTE | ~2023-04-07 | CT_ITS ---
EXAMINATION:CT diagnostic chest w con DATE: 04/07/2023 15:07 INDICATION: Malignant neoplasm of lung. TECHNIQUE: Computed tomography (CT) of the chest was performed with 75 mm Omnipaque 350 intravenous c ontrast. Automated exposure control and iterative reconstruction technique were employed. The dose-le ngth product (DLP) was 295.23 mGy-cm. COMPARISON: Chest CT 01/12/2023, 10/21/2022, 03/24/2022 FINDINGS: There is mild emphysema. There is mild atelectasis and scarring in the lungs, worst in left lung and right lower lobe. There is a 4.5 x 4.5 cm mass involving left upper lobe and the anterior m ediastinum with improvement from 5.2 x 5.0 cm on 01/12/23. The heart size is normal. There are coronary artery calcifications. There is a small pericardial effusion. There is a small left pleural effusion . There is elevation of left hemidiaphragm. There is mild right paratracheal lymphadenopathy, stable from 03/24/22. There is a 2.3 cm nodule in right thyroid lobe. There is a right internal jugular port with tip at superior cavoatrial junction. There are cysts in the liver measuring up to 2.1 cm. There are changes of cholecystectomy. There is a 16 mm cyst in right kidney. There is severe cervical thor acic spondylosis. IMPRESSION: 1. Mass involving left lung upper lobe and the anterior mediastinum with improvement from 01/12/23, con sistent with primary bronchogenic carcinoma. 2. Mild right paratracheal lymphadenopathy, stable from 03/24/22, which is indeterminate for metastat ic disease. 3. Stable small pericardial effusion. 4. Mildly worsened small left pleural effusion. 5. Thyroid nodule. Consider thyroid ultrasound for risk stratification if clinically indicated given the patient's comorbidity. Reviewed, dictated and finalized at location E. IMPRESSION: 1. Mass involving left lung upper lobe and the anterior mediastinum with improv ement from 01/12/23, consistent with primary bronchogenic carcinoma. 2. Mild right paratracheal lymphadenopathy, stable from 03/24/22, which is inde terminate for metastatic disease. 3. Stable small pericardial effusion. 4. Mildly worsened small left pleural effusion. 5. Thyroid nodule. Consider thyroid ultrasound for risk stratification if clini ben indicated given the patient's comorbidity.
== END 2023-04-07 14:37 | disposition home or self-care (01) ==
PROVIDERS: PCP Family Medicine; Visit Provider Internal Medicine Hematology & Oncology
DX: C34.90 Malignant neoplasm of unspecified part of unspecified bronchus or lung (principal); I31.39 Other pericardial effusion (noninflammatory); J90 Pleural effusion, not elsewhere classified; E04.1 Nontoxic single thyroid nodule
CPT/HCPCS: 71260; Q9967

== ENCOUNTER 2023-04-14 09:19 | Outpatient (CLI) | payer MEDICARE, MEDICAID, SELFPAY ==
[2023-04-14 11:28] LABS: Prostate Specific Antigen 2.7 ng/mL (< OR = 4.0)
== END 2023-04-14 09:20 | disposition home or self-care (01) ==
PROVIDERS: PCP Family Medicine; Visit Provider Internal Medicine Hematology & Oncology
DX: Z12.5 Encounter for screening for malignant neoplasm of prostate (principal); R97.20 Elevated prostate specific antigen [PSA]
CPT/HCPCS: 36415; 84153

== ENCOUNTER 2023-08-07 10:34 | Outpatient (CLI) | payer MEDICARE, MEDICAID, SELFPAY ==
--- NOTE | ~2023-08-07 | CT_ITS ---
Clinical Indication: Lung cancer CT Scan of the Chest with Contrast: Technique: Contiguous sections were acquired throughout the chest after intravenous administration of 75 cc of Omnipaque 350. Dose reduction technique was used on this scan by utilizing automated exposu re control and iterative reconstruction technique. The dose-length product (DLP) was 234.93 mGy-cm. COMPARISON: 04/07/2023 Findings: There is no evidence of any significant mediastinal, hilar or axillary lymphadenopathy. There is no f illing defect in the pulmonary arterial tree to suggest pulmonary embolus. There is no evidence of ao rtic dissection or aneurysm. Small pericardial effusion present. Zogus-hv-dfkuemnz left pleural effusion is present. Stable mass lesion at the anteromedial left upper lobe invading into the anterior mediastinum, measur ing approximately 4.3 x 4.3 cm in transverse dimension. There is mild emphysema. Images through the upper abdomen reveal no abnormalities. Impression: Stable 4.3 x 4.3 cm anteromedial left upper lobe mass invading the anterior mediastinum. This is cons istent with bronchogenic carcinoma. Small to moderate left pleural effusion. Small pericardial effusion. Reviewed, dictated and finalized at [facility]. [employer] Impression: Stable 4.3 x 4.3 cm anteromedial left upper lobe mass invading the anterior med iastinum. This is consistent with bronchogenic carcinoma. Small to moderate left pleural effusion. Small pericardial effusion.
== END 2023-08-07 10:35 | disposition home or self-care (01) ==
PROVIDERS: PCP Family Medicine; Visit Provider Internal Medicine Hematology & Oncology
DX: C34.90 Malignant neoplasm of unspecified part of unspecified bronchus or lung (principal); J90 Pleural effusion, not elsewhere classified; I31.39 Other pericardial effusion (noninflammatory)
CPT/HCPCS: 71260; Q9967

== ENCOUNTER 2023-12-02 09:55 | Outpatient (CLI) | payer MEDICARE, MEDICAID, SELFPAY ==
--- NOTE | 2023-12-02 13:31 | WPDSIXMINUTE ---
Six Minute Walk Procedure Procedure Performed Pulmonary Stress Test (6 min walk) Six Minute Walk Six Minute Walk: This is a 6 minute walk test. The test was performed and interpreted in accordance with the 2014 ERS/ATS task force guidelines. Findings: The patient's resting room air oxygen saturation measured by pulse oximetry was 97% and heart rate was 83 bpm. Patient ambulated for 244 meters and oxygen saturation remained 95 to 96%. Heart rate at the end of the study was 116 bpm. The patient did not qualify for supplemental oxygen at rest or with ambulation. There are no prior studies for comparison.
--- NOTE | 2023-12-02 13:32 | P.PCNPFT_ITS ---
PFT Procedure Performed PFT Procedure Performed Spirometry with Pre/Post Bronchodilator Plethysmography (Lung Vol) Diffusing Cap (DLCO) Flow Vol Loop PFT Interpretation This is a pulmonary function test with pre and post-bronchodilator spirometry, plethysmography and diffusing capacity. The test was performed and results interpreted in accordance with the 2019 and 2005 ATS/ERS Task Force guidelines respectively using the Global Lung Function Initiative-2012 reference equations. Patient demonstrated good effort and cooperation. Reproducibility criteria were met. The quality of the pre bronchodilator spirometry maneuver was Grade A and post bronchodilator spirometry maneuver was Grade B. Findings: Spirometry: There is decreased maximal expiratory airflow at all lung volumes with concave expiratory flow tracing. The contour the inspiratory flow tracing is normal. The pre bronchodilator FVC is 4.17 L, 103% predicted. The pre bronchodilator FEV1 is 2.37 L, 77% predicted. The pre bronchodilator FEV1: FVC ratio is 57%. The post bronchodilator FVC is 3.98 L, representing a 4% decrease. The post bronchodilator FEV1 is 2.37 L, representing no change. The post bronchodilator FEV1: FVC ratio is 59%. Plethysmography: The total lung capacity is 6.88 L, 101% predicted. The functional residual capacity is 3.41 L, 94% predicted. The residual volume is 2.50 L, 104% predicted. Diffusing capacity: The diffusing capacity unadjusted for hemoglobin and carboxyhemoglobin is 11.4, 45% predicted. The diffusing capacity adjusted for alveolar volume is 2.46, 62% predicted. Impression: There is a mild obstructive abnormality with a normal FEV1. There is no significant improvement after inhaling a single dose of albuterol. The lung volumes are normal. The diffusing capacity unadjusted for hemoglobin and carboxyhemoglobin is moderately decreased and remain mildly decreased when a djusted for alveolar volume. There are no prior studies for comparison
== END 2023-12-02 09:56 | disposition home or self-care (01) ==
PROVIDERS: PCP Family Medicine; Visit Provider Internal Medicine Pulmonary Disease
DX: J61 Pneumoconiosis due to asbestos and other mineral fibers (principal); Z87.891 Personal history of nicotine dependence; R94.2 Abnormal results of pulmonary function studies
CPT/HCPCS: 94060; 94618; 94726; 94729

== ENCOUNTER 2023-12-07 09:02 | Outpatient (CLI) | payer MEDICARE, SELFPAY ==
--- NOTE | ~2023-12-07 | CT_ITS ---
CT diagnostic chest w con Ordering provider: Rob Morales MD History: 73 years Male with . MAL VIOLETTA OF LUNG . Comparison: August 07, 2023 Technique: CT chest with IV contrast. Radiation reduction technique utilized. DLP is 205.74 mGy. 75ML of Omnipaque 350 was given IV. Findings: VISUALIZED THORACIC INLET: Possible adenoma in the right lobe of the thyroid. MEDIASTINUM: Aorta/coronary arteries: Mild atheromatous disease. Heart/other: The heart is not enlarged. Pericardial effusion is noted anteriorly Lymph nodes: Paratracheal lymph nodes are noted with the largest measures 1.9 x 1.2 cm. LUNGS: Prevascular mass is seen which measures 4.8 x 6.5 cm. Nodule in the right middle lobe measurin g 1.2 x 0.9 cm.Nodule also seen in the right upper lobe measuring1 cm.Nodule in the left lower lobe m easuring 0.4 cm. No infiltrates No pneumothorax. Moderate Left pleural effusion. VISUALIZED UPPER ABDOMEN: Right renal cyst measuring 2.2 cm.. Left lobe liver cyst measuring 2.2 cm. Otherwise, the visualized upper abdomen is normal. MUSCULOSKELETAL: Soft tissues: The superficial soft tissues are normal. Bones: Age appropriate degenerative changes of the spine. IMPRESSION: Mass in the left upper lobe area extending to the mediastinum. Slightly enlarged compared to previous study. Further evaluation advised. Left moderate pleural effusion. Pericardial effusion. Possibility of extension of the mass into the pericardium cannot be excluded. Nodule in the right middle lobe measuring 1.2 x 0.9 cm. Nodule in the right upper lobe measuring 1 cm. Nodule in the left lower lobe measuring 0.4 cm. Reviewed, dictated and finalized at location A. IMPRESSION: Mass in the left upper lobe area extending to the mediastinum. Slightly enlarge d compared to previous study. Further evaluation advised. Left moderate pleural effusion. Pericardial effusion. Possibility of extension of the mass into the pericardium cannot be excluded. Nodule in the right middle lobe measuring 1.2 x 0.9 cm. Nodule in the right upper lobe measuring 1 cm. Nodule in the left lower lobe measuring 0.4 cm.
[2023-12-07 09:59] LABS: Estimated Glomerular Filt Rate > 60
== END 2023-12-07 09:03 | disposition home or self-care (01) ==
PROVIDERS: PCP Family Medicine; Visit Provider Internal Medicine Hematology & Oncology
DX: C34.90 Malignant neoplasm of unspecified part of unspecified bronchus or lung (principal); I31.39 Other pericardial effusion (noninflammatory)
CPT/HCPCS: 71260; Q9967

== ENCOUNTER 2023-12-18 05:15 | Outpatient (CLI) | payer MEDICARE, SELFPAY ==
[2023-12-17 15:52] VITALS: BMI 25.4
--- NOTE | 2023-12-17 15:52 | PC.NURSE ---
Addendum entered by Savanah Asher RN 12/17/23 15:56: PATIENT STATES HE HAS NOT STOPPED ASPIRIN Original Note: Pre Radiology instructions Report to the outpatient josr mg on date __12/18/23___ at time ___0930____ for procedure Time: _1130___ YOU MAY BE MONITORED AT HOSPITAL FOR UP TO 4 HOURS AFTER YOUR PROCEDURE. A visitor will be allowed to accompany the patient into the hospital. You and your visitor will be asked to self-screen and do not enter if you have any COVID symptoms. A mask is OPTIONAL within the hospital. Patients are to have no food or drink 6 hours prior to procedure time Driving will be restricted after the procedure, you must have a person to drive you home. Labs will be drawn in preop area and once reviewed, you will be taken to radiology area for procedure. When the procedure is completed, you will be taken to outpatient where you will be monitored for several hours. You may have one visitor in this area. Other than holding anti-coagulants, patient may take other medication(s) as scheduled. Prior to your appointment date patients are instructed to hold anti-coagulants after discussing with ordering provider to stop. If unable to discontinue anti-coagulants please notify radiologist. ? No aspirin or warfarin (Coumadin) for 7 days prior to the procedure. ? No clopidogrel (Plavix), ticagrelor (Brilinta), prasugrel (Effient) or dabigatran (Pradaxa) for 5 days prior to the procedure. ? No rivaroxaban (Xarelto), apixaban (Eliquis), dipyridamole (Aggrenox or Persantine) or cilostazol (Pletal) for 2 days prior to the procedure. Medications to discontinue per physician: __ASPIRIN Date to take last dose: ___12/10/23 Please leave all valuables, including medications, at home the day of procedure. The hospital will not accept responsibility for valuables. Wear comfortable, loose fitting clothing.? Follow any additional instructions given to you from ordering provider. Telephone instructions given to ___PATIENT and asked if any additional questions and then verbalized understanding. Patient advised to call scheduling provider office or registration scheduling [phone] if any additional questions.
--- NOTE | 2023-12-17 16:03 | PC.NURSE ---
CALL TO RADIOLOGY TO REPORT NO STOPPING OF ASPIRIN. DR CORNELL STATES TO CONTINUE WITH PLANNED PROCEDURE AND FOR PATIENT TO TAKE NO MORE ASPIRIN PRIOR TO PROCEDURE. CALL TO PATIENT, HE STATES LAST ASPIRIN WAS 12/16/23 AT 2200. HE RELAYS UNDERSTANDING.
[2023-12-18] VITALS (10 sets, daily range): BP systolic 120–132; BP diastolic 73–82; PULSE 68–80; RESP 14–18; TEMP 36.4; O2SAT 97–99; BMI 26.0
--- NOTE | ~2023-12-18 | XR_ITS ---
Portable chest x-ray Comparison: None Clinical History: Postthoracentesis Findings: Right-sided Mediport in place. Possible minimal residual left pleural effusion with probab le minimal left basilar atelectatic change. No pneumothorax. Right lung clear. Cardiomediastinal [place] is stable. Bones and soft tissues are unremarkable. Impression: Possible minimal residual left pleural effusion and minimal left basilar atelectatic change. No pneum othorax. Right-sided Mediport. Reviewed, dictated and finalized at location M. Impression: Possible minimal residual left pleural effusion and minimal left basilar atelec tatic change. No pneumothorax. Right-sided Mediport.
--- NOTE | ~2023-12-18 | US_ITS ---
EXAMINATION: US thoracentesis DATE: 12/18/2023 12:19 INDICATION: Left pleural effusion TECHNIQUE: The procedure and its risks and benefits were discussed with the patient. Potential risks discussed included bleeding, infection, and pneumothorax. The patient understood the risks and agreed to proceed. The skin was prepped and draped in sterile fashion. 1% lidocaine was used for local anes thesia. Under ultrasound guidance, a 5 Fr catheter with trochar was advanced into the left pleural ef fusion. Fluid was aspirated. The catheter was removed, and a dressing was applied. There were no imme diate complications. FINDINGS: Ultrasound images demonstrate a small left pleural effusion and the catheter within the fluid. IMPRESSION: 1. Successful ultrasound-guided thoracentesis yielding 250 mL of yellow fluid. Reviewed, dictated and finalized at location A.
[2023-12-18 10:27] LABS: Prothrombin Time 13.8 Seconds (11.1-14.7)
--- NOTE | 2023-12-18 12:12 | SUR.PHASEII ---
Pt presented to Phase 2 recovery at 1204 - pt can lay any direction per audio/video technician. Pt must be NPO for 2 hrs following procedure.
== END 2023-12-18 14:18 | disposition home or self-care (01) ==
PROVIDERS: PCP Family Medicine; Referring Provider Internal Medicine Hematology & Oncology; Visit Provider Radiology Diagnostic Radiology
DX: J90 Pleural effusion, not elsewhere classified (principal)
CPT/HCPCS: 32555; 36415; 85610; 88108; 88305

== ENCOUNTER 2023-12-22 11:56 | Outpatient (CLI) | payer MEDICARE, SELFPAY ==
--- NOTE | ~2023-12-22 | PE_ITS ---
EXAMINATION: PET skull to mid thigh DATE: 12/22/2023 14:40 INDICATION: Malignant neoplasm of the lung TECHNIQUE: Blood glucose level was 121 mg/dL. 10.496 mCi of 18-fluorodeoxyglucose (18-FDG) was admini stered i.v. Low dose computed tomography (CT) images were acquired from the base of the brain to the proximal thighs for attenuation correction and anatomic localization. Positron emission tomography (P ET) images were acquired in the same distribution beginning 65 minutes after injection. Images includ ing fused PET/CT images were reconstructed in axial, coronal, and sagittal planes. Automated exposure control technique was employed. The dose-length product was 1039.81mGy-cm. COMPARISON: Chest CT dated 03/24/2022 and 12/07/2023 FINDINGS: Head/neck: There is symmetric increased activity in the oral cavity, palatine tonsils, laryngeal muscles and ocu lar muscles without CT correlate, likely physiologic. No pathologically enlarged cervical lymphadenop athy or suspicious foci of increased FDG uptake in the visualized head or neck. Chest: Mild emphysema. Volume loss in the left hemithorax with elevation of the left hemidiaphragm and scatt ered groundglass and linear opacities in the left lung consistent with atelectasis. There is prominen t FDG uptake associated with the mass at the anteromedial left upper lobe which invades the mediastin um. The mass measures approximately 6.3 x 3.8 cm with maximal SUV of 19.4. There is a central photope kamila region within the mass with increased density within this region on CT images which suggests cent ral necrosis and potentially small amount of hemorrhage. There is increased FDG uptake with maximal S UV of 9.1 associated with the right upper lobe nodule with peripheral branching mucocele. There is al so increased FDG uptake with maximal SUV of 9.5 associated with the 12 x 9 mm right middle lobe nodul e . Mild FDG uptake with maximal SUV of 2.9 associated with the 4 mm nodule at the superior segment o f the left lower lobe. Each of these nodules is suspicious for metastatic disease. Small left pleural effusion. Heart size is normal. Small pericardial effusion. Atherosclerotic coronary artery calcific ations. No pathologically enlarged or FDG avid thoracic lymphadenopathy. Right internal jugular centr al venous port catheter with distal tip at the superior cavoatrial junction. Abdomen/pelvis/proximal thighs: Physiologic renal accumulation and excretion of FDG activity in the kidneys, bladder and along portio ns of ureters. Photopenic defect associated with a 1.5 cm low-attenuation right renal cyst. Cholecyst ectomy clips at the gallbladder fossa. Photopenic defect associated with a 2.3 cm low-attenuation cys t in the left hepatic lobe. Otherwise normal degree and heterogenous pattern of increased uptake thro ughout the liver without radiologic correlate or dominant FDG avid lesion. The pancreas, spleen and b ilateral adrenal glands are normal. Mild uptake scattered throughout the bowels without radiologic co rrelate, also likely physiologic. There are scattered colonic diverticulosis without adjacent inflamm atory change to suggest diverticulitis. Normal appendix. No other abnormal foci of increased FDG upta ke or pathologically enlarged lymphadenopathy in the abdomen, pelvis or proximal thighs. Musculoskeletal: There is scattered mild likely physiologic uptake in the muscles at the left hand and forearm and lexii rounding musculature at the left hip. There is a small focus of mild uptake with maximal SUV of 4.1 a ssociated with dystrophic calcifications at the alar ligament about the dens where there are also cou ple small erosions without increased FDG uptake. Severe spondylosis with lumbar and lower cervical pr edominant. No suspicious lytic, blastic or FDG avid bone lesions. IMPRESSION: 1. Prominent increased FDG uptake associated with a left upper lobe mass which invades the anterior m ediastinum co
[2023-12-22 12:24] LABS: Glucose Point of Care 121 mg/dl (65-105)
== END 2023-12-22 11:57 | disposition home or self-care (01) ==
PROVIDERS: PCP Family Medicine; Visit Provider Internal Medicine Hematology & Oncology
DX: C34.12 Malignant neoplasm of upper lobe, left bronchus or lung (principal); J90 Pleural effusion, not elsewhere classified; I31.39 Other pericardial effusion (noninflammatory)
CPT/HCPCS: 78815; A9552